=== PATIENT | male | born 1960 | race Caucasian/White ===

== ENCOUNTER 2018-01-21 17:02 | Observation (INO) | payer OTHER ==
[2018-01-21 18:40] LABS: ADD MAN DIFF? NO
[2018-01-21 18:43] LABS: WHITE BLOOD COUNT 5.8 10^3/ul (4.8-10.8)
[2018-01-21 18:43] LABS: BASOPHILS % 0.7 % (0.0-2.0); EOSINOPHILS # 0.2 10^3/ul (0.0-0.5); EOSINOPHILS % 3.8 % (0.0-7.0); HEMATOCRIT 42.3 % (42.0-52.0); HEMOGLOBIN 13.8 g/dl (14.0-18.0); LYMPHOCYTES # 1.3 10^3/ul (0.8-2.9); LYMPHOCYTES % 22.8 % (15.0-51.0); MEAN CORPUSCULAR HEMOGLOBIN 30.5 pg (29.0-33.0); MEAN CORPUSCULAR HGB CONC 32.6 g/dl (32.0-37.0); MEAN CORPUSCULAR VOLUME 93.4 fl (82.0-101.0); MEAN PLATELET VOLUME 9.4 fl (7.4-10.4); MONOCYTE # 0.4 10^3/ul (0.3-0.9); MONOCYTES % 7.4 % (0.0-11.0); NEUTROPHIL # 3.8 10^3/ul (1.6-7.5); NEUTROPHILS % 65.1 % (39.0-77.0); PLATELET COUNT 206 10^3/UL (140-415); RED BLOOD COUNT 4.53 10^6/ul (4.70-6.10); RED CELL DISTRIBUTION WIDTH 13.7 % (11.5-14.5)
[2018-01-21 19:04] LABS: INR 1.05; PROTIME 13.8 Sec (11.9-14.9); PT RATIO 1.1
[2018-01-21 19:05] LABS: PARTIAL THROMBOPLASTIN TIME 31.8 Sec (25.0-35.0)
[2018-01-21] MEDS: HEPARIN 25000 UNITS/250 ML 250 ML IV (19:05)
[2018-01-21 19:07] LABS: ALANINE AMINOTRANSFERASE 33 IU/L (13-69); ALBUMIN 4.5 g/dl (3.3-4.9); ALBUMIN/GLOBULIN RATIO 1.55; ALKALINE PHOSPHATASE 49 IU/L (42-121); ANION GAP 14 (8-16); ASPARTATE AMINO TRANSFERASE 22 IU/L (15-46); BILIRUBIN,INDIRECT 0.2 mg/dl (0-1.1); BILIRUBIN,TOTAL 0.2 mg/dl (0.2-1.3); BLOOD UREA NITROGEN 34 mg/dl (7-20); CALCIUM 9.6 mg/dl (8.4-10.2); CARBON DIOXIDE 28 mmol/L (21-31); CHLORIDE 105 mmol/L (97-110); CREATININE 1.03 mg/dl (0.61-1.24); GLUCOSE 86 mg/dl (70-220); POTASSIUM 4.9 mmol/L (3.5-5.1); SODIUM 142 mmol/L (135-144); TOTAL PROTEIN 7.4 g/dl (6.1-8.1)
[2018-01-21] MEDS ORDERED: ONDANSETRON 4 MG INJ IV (20:00)
[2018-01-21] MEDS ORDERED: HEPARIN 1000 UNITS/ML 10 ML INJ IV (23:45)
[2018-01-22] MEDS: HEPARIN 25000 UNITS/250 ML 250 ML IV ×2 (00:15→06:28)
[2018-01-22 00:47] LABS: PROTIME 14.4 Sec (11.9-14.9); PT RATIO 1.1
[2018-01-22 01:03] LABS: PARTIAL THROMBOPLASTIN TIME 84.1 Sec (25.0-35.0)
[2018-01-22] MEDS ORDERED: MECLIZINE 25 MG TAB PO (03:00)
[2018-01-22] MEDS ORDERED: MAGNESIUM HYDROXIDE 30ML CUP PO (03:00)
[2018-01-22] MEDS ORDERED: HYDROCODONE/APAP (5/325) TAB PO (03:00)
[2018-01-22] MEDS ORDERED: ALBUTEROL/IPRATROPIUM (NEB) 3 ML AMP HHN (03:00)
[2018-01-22] MEDS ORDERED: NACL 0.9% 3 ML SYG IV (03:00)
[2018-01-22] MEDS ORDERED: morphine 2 MG INJ IV (03:00)
[2018-01-22] MEDS ORDERED: ONDANSETRON 4 MG INJ IV (03:00)
[2018-01-22] MEDS ORDERED: ACETAMINOPHEN 325 MG TAB PO (03:00)
[2018-01-22] MEDS: traMADol 50 MG TAB PO (06:25)
[2018-01-22 07:28] LABS: ADD MAN DIFF? NO
[2018-01-22 07:32] LABS: WHITE BLOOD COUNT 7.6 10^3/ul (4.8-10.8)
[2018-01-22 07:32] LABS: BASOPHILS % 0.5 % (0.0-2.0); EOSINOPHILS # 0.3 10^3/ul (0.0-0.5); EOSINOPHILS % 4.4 % (0.0-7.0); HEMATOCRIT 41.7 % (42.0-52.0); HEMOGLOBIN 13.7 g/dl (14.0-18.0); LYMPHOCYTES # 1.2 10^3/ul (0.8-2.9); LYMPHOCYTES % 15.9 % (15.0-51.0); MEAN CORPUSCULAR HEMOGLOBIN 30.6 pg (29.0-33.0); MEAN CORPUSCULAR HGB CONC 32.9 g/dl (32.0-37.0); MEAN CORPUSCULAR VOLUME 93.3 fl (82.0-101.0); MEAN PLATELET VOLUME 9.6 fl (7.4-10.4); MONOCYTE # 0.5 10^3/ul (0.3-0.9); NEUTROPHIL # 5.5 10^3/ul (1.6-7.5); NEUTROPHILS % 71.9 % (39.0-77.0); PLATELET COUNT 198 10^3/UL (140-415); RED BLOOD COUNT 4.47 10^6/ul (4.70-6.10); RED CELL DISTRIBUTION WIDTH 13.6 % (11.5-14.5)
[2018-01-22] MEDS: HYDROmorphONE 0.5 MG/0.5 ML SYG IV (07:49)
[2018-01-22 07:55] LABS: PARTIAL THROMBOPLASTIN TIME 110.2 Sec (25.0-35.0)
[2018-01-22 07:58] LABS: ALANINE AMINOTRANSFERASE 30 IU/L (13-69); ALBUMIN 4.2 g/dl (3.3-4.9); ALKALINE PHOSPHATASE 52 IU/L (42-121); ANION GAP 15 (8-16); ASPARTATE AMINO TRANSFERASE 19 IU/L (15-46); BILIRUBIN,INDIRECT 0.4 mg/dl (0-1.1); BILIRUBIN,TOTAL 0.4 mg/dl (0.2-1.3); BLOOD UREA NITROGEN 26 mg/dl (7-20); CALCIUM 9.3 mg/dl (8.4-10.2); CARBON DIOXIDE 25 mmol/L (21-31); CHLORIDE 107 mmol/L (97-110); CREATININE 1.05 mg/dl (0.61-1.24); GLUCOSE 100 mg/dl (70-220); MAGNESIUM 1.7 mg/dl (1.7-2.5); PHOSPHORUS 3.7 mg/dl (2.5-4.9); POTASSIUM 4.3 mmol/L (3.5-5.1); SODIUM 143 mmol/L (135-144); TOTAL PROTEIN 7.2 g/dl (6.1-8.1)
[2018-01-22] MEDS: FISH OIL 1,000 MG CAP PO (08:51)
[2018-01-22] MEDS: DOCUSATE SODIUM 100 MG CAP PO (08:52)
[2018-01-22] MEDS: MODAFINIL 200 MG TAB PO (08:52)
[2018-01-22] MEDS: PENTOXIFYLLINE (SR) 400 MG TAB PO ×2 (08:52→12:49)
[2018-01-22] MEDS: MULTIVITAMINS THERAPEUTIC TAB PO (08:52)
[2018-01-22] MEDS: FERROUS SULFATE (EC) 325 MG TAB PO (08:52)
[2018-01-22] MEDS: SPIRONOLACTONE 50 MG TAB PO (08:53)
[2018-01-22] MEDS: ACETAMINOPHEN 325 MG TAB PO (16:19)
[2018-01-22] MEDS ORDERED: ACET/BUTAL/CAFF TAB PO (16:30)
[2018-01-22] MEDS: APIXABAN 5 MG TABLET PO (19:55)
[2018-01-22] MEDS ORDERED: FUROSEMIDE 40 MG TAB PO (21:00)
[2018-01-22] MEDS ORDERED: ATORVASTATIN 20 MG TAB PO (21:00)
== END 2018-01-22 19:54 | disposition home or self-care (01) ==
LOC: E/R 17:02 → MS4 19:39
DX: I82.403 Acute embolism and thrombosis of unspecified deep veins of lower extremity, bilateral (principal); I10 Essential (primary) hypertension; G47.33 Obstructive sleep apnea (adult) (pediatric); R22.42 Localized swelling, mass and lump, left lower limb; E66.01 Morbid (severe) obesity due to excess calories; Z68.41 Body mass index [BMI] 40.0-44.9, adult; Z87.891 Personal history of nicotine dependence; Z82.49 Family history of ischemic heart disease and other diseases of the circulatory system
CPT/HCPCS: 80053; 83735; 84100; 85025; 85610; 85730; 96374; 99285-25; G0378